=== PATIENT | female | born 1995 | race Caucasian/White ===

== ENCOUNTER 2017-05-19 14:12 | Outpatient (CLI) | payer OTHER | END 2017-05-19 17:00 | disposition home or self-care (01) | LOC: OBT 14:12 → L-D 14:13 → OBT 17:00 | DX: O62.9 Abnormality of forces of labor, unspecified (principal); Z3A.40 40 weeks gestation of pregnancy | CPT/HCPCS: 76815; 76818 ==

== ENCOUNTER 2017-05-24 14:05 | Inpatient (IN) | payer OTHER ==
[2017-05-24] MEDS ORDERED: OXYTOCIN 30 UNITS/LR 500 ML IV ×2 (15:00)
[2017-05-24] MEDS ORDERED: METHYLERGONOVINE 0.2 MG INJ IM (15:00)
[2017-05-24] MEDS ORDERED: MISOPROSTOL 200 MCG TAB PR (15:00)
[2017-05-24] MEDS ORDERED: CARBOPROST 250 MCG INJ IM (15:00)
[2017-05-24] MEDS ORDERED: LIDOCAINE 1% (MPF) 30 ML INJ INJ (15:00)
[2017-05-24] MEDS ORDERED: IBUPROFEN 600 MG TAB PO (15:00)
[2017-05-24 15:23] LABS: ADD MAN DIFF? NO
[2017-05-24] MEDS: LACTATED RINGER'S 1,000 ML IV ×2 (15:27→17:05)
[2017-05-24 15:28] LABS: BASOPHILS % 0.3 % (0.0-2.0); EOSINOPHILS # 0.1 10^3/ul (0.0-0.5); EOSINOPHILS % 1.6 % (0.0-7.0); HEMATOCRIT 36.9 % (37.0-47.0); HEMOGLOBIN 12.7 g/dl (12.0-16.0); LYMPHOCYTES % 27.3 % (18.0-55.0); MEAN CORPUSCULAR HEMOGLOBIN 29.5 pg (29.0-33.0); MEAN CORPUSCULAR HGB CONC 34.4 g/dl (32.0-37.0); MEAN CORPUSCULAR VOLUME 85.8 fl (72.0-104.0); MEAN PLATELET VOLUME 10.6 fl (7.4-10.4); MONOCYTE # 0.5 10^3/ul (0.3-0.9); NEUTROPHIL # 4.7 10^3/ul (1.6-7.5); NEUTROPHILS % 63.5 % (30.0-74.0); PLATELET COUNT 208 10^3/UL (140-415); RED CELL DISTRIBUTION WIDTH 12.8 % (11.5-14.5)
[2017-05-24 15:28] LABS: WHITE BLOOD COUNT 7.3 10^3/ul (4.8-10.8)
[2017-05-24 15:45] LABS: INR 0.86; PROTIME 11.8 Sec (11.9-14.9); PT RATIO 0.9
[2017-05-24 15:46] LABS: PARTIAL THROMBOPLASTIN TIME 28.6 Sec (25.0-35.0)
[2017-05-24] MEDS: AMPICILLIN 2 GM/NS (PMX) 100 ML IV (17:05)
[2017-05-24 19:32] LABS: RAPID PLASMA REAGIN NONREACTIVE (NR)
[2017-05-24] MEDS: AMPICILLIN 1 GM/NS (PMX) 50 ML IV (21:03)
[2017-05-25] MEDS: LACTATED RINGER'S 1,000 ML IV ×5 (00:23→17:03)
[2017-05-25] MEDS: AMPICILLIN 1 GM/NS (PMX) 50 ML IV ×6 (00:58→20:37)
[2017-05-25] MEDS: OXYTOCIN 30 UNITS/LR 500 ML IV ×3 (09:26→23:26)
[2017-05-25] MEDS ORDERED: FENTAnyl 2MCG/ML-ROPIV 0.2% 100 ML (14:10)
[2017-05-25] MEDS: LACTATED RINGER'S 1,000 ML IV* (22:26)
[2017-05-25] MEDS ORDERED: DIPHENHYDRAMINE 25 MG CAP PO (22:30)
[2017-05-25] MEDS ORDERED: ZOLPIDEM 5 MG TAB PO (22:30)
[2017-05-25] MEDS ORDERED: CARBOPROST 250 MCG INJ IM (22:30)
[2017-05-25] MEDS ORDERED: ACETAMINOPHEN 325 MG TAB PO (22:30)
[2017-05-25] MEDS ORDERED: METHYLERGONOVINE 0.2 MG TAB PO (22:30)
[2017-05-25] MEDS ORDERED: METHYLERGONOVINE 0.2 MG INJ IM (22:30)
[2017-05-25] MEDS ORDERED: ONDANSETRON 4 MG INJ IV (22:30)
[2017-05-25] MEDS ORDERED: MISOPROSTOL 200 MCG TAB PR (22:30)
[2017-05-25] MEDS ORDERED: HYDROCODONE/APAP (5/325) TAB PO (22:30)
[2017-05-25] MEDS ORDERED: OXYTOCIN 30 UNITS/LR 500 ML IV ×2 (22:30→23:30)
[2017-05-25] MEDS: WITCH HAZEL/GLYCERIN PAD PR (23:54)
[2017-05-25] MEDS: LANOLIN 7 GM TUBE TOP (23:54)
[2017-05-25] MEDS: IBUPROFEN 600 MG TAB PO (23:54)
[2017-05-26] MEDS: IBUPROFEN 600 MG TAB PO ×3 (05:30→18:00)
[2017-05-26] MEDS: LACTATED RINGER'S 1,000 ML IV* ×2 (06:26→14:26)
[2017-05-26 07:39] LABS: HEMATOCRIT 27.1 % (37.0-47.0); HEMOGLOBIN 9.3 g/dl (12.0-16.0)
[2017-05-26] MEDS: FERROUS SULFATE (EC) 325 MG TAB PO (09:29)
[2017-05-26] MEDS: SENNA/DOCUSATE NA (8.6MG/50MG) TAB PO ×2 (09:29→21:00)
[2017-05-26 15:07] LABS: ADD MAN DIFF? NO
[2017-05-26 15:10] LABS: WHITE BLOOD COUNT 9.3 10^3/ul (4.8-10.8)
[2017-05-26 15:10] LABS: BASOPHILS % 0.2 % (0.0-2.0); EOSINOPHILS # 0.2 10^3/ul (0.0-0.5); EOSINOPHILS % 1.6 % (0.0-7.0); HEMATOCRIT 30.5 % (37.0-47.0); HEMOGLOBIN 10.4 g/dl (12.0-16.0); LYMPHOCYTES # 2.3 10^3/ul (0.8-2.9); LYMPHOCYTES % 24.3 % (18.0-55.0); MEAN CORPUSCULAR HEMOGLOBIN 29.6 pg (29.0-33.0); MEAN CORPUSCULAR HGB CONC 34.1 g/dl (32.0-37.0); MEAN CORPUSCULAR VOLUME 86.9 fl (72.0-104.0); MEAN PLATELET VOLUME 10.3 fl (7.4-10.4); MONOCYTE # 0.6 10^3/ul (0.3-0.9); NEUTROPHIL # 6.3 10^3/ul (1.6-7.5); NEUTROPHILS % 67.6 % (30.0-74.0); PLATELET COUNT 167 10^3/UL (140-415); RED BLOOD COUNT 3.51 10^6/ul (4.20-5.40); RED CELL DISTRIBUTION WIDTH 12.7 % (11.5-14.5)
[2017-05-27] MEDS: IBUPROFEN 600 MG TAB PO ×4 (05:33→18:32)
[2017-05-27] MEDS: DIPHTH/TET/ACEL PERTUSS (ADULT) 0.5 ML VIAL IM* (09:00)
[2017-05-27] MEDS: FERROUS SULFATE (EC) 325 MG TAB PO (10:44)
[2017-05-27] MEDS: SENNA/DOCUSATE NA (8.6MG/50MG) TAB PO (10:44)
[2017-05-27] MEDS: MEASLES,MUMPS,RUBELLA VACCINE INJ SC* (11:18)
[2017-05-27] MEDS: VARICELLA VACCINE LIVE/PF 1,350 UNIT/0.5 ML ML SC* (11:19)
== END 2017-05-27 19:01 | disposition home or self-care (01) | DRG 775 ==
LOC: PP1 05-26 15:54 → L-D 14:05 → PP1 05-25 23:43
PROVIDERS: Obstetrics & Gynecology
PROC: 10E0XZZ Delivery of Products of Conception, External Approach (ICD-10-PCS; principal; 2017-05-25)
PROC: 0KQM0ZZ Repair Perineum Muscle, Open Approach (ICD-10-PCS; 2017-05-25)
PROC: 0UQMXZZ Repair Vulva, External Approach (ICD-10-PCS; 2017-05-25)
PROC: 0UQGXZZ Repair Vagina, External Approach (ICD-10-PCS; 2017-05-25)
DX: O48.0 Post-term pregnancy (principal); O99.824 Streptococcus B carrier state complicating childbirth; O70.1 Second degree perineal laceration during delivery; Z3A.41 41 weeks gestation of pregnancy; Z37.0 Single live birth
CPT/HCPCS: 62319; 85014; 85018; 85025; 85610; 85730; 86592; 86900; 86901